=== PATIENT | male | born 1960 | race Two or more races ===

== ENCOUNTER 2019-05-17 21:02 | Emergency (ER) | payer MEDICAID ==
[~2019-05-17] VITALS: Ht 182.9 cm; Wt 75.7 kg
[2019-05-17 20:55] VITALS: BP 108/72
--- NOTE | 2019-05-17 20:55 | NUR ---
ED Nurse Note: pt brought in by [facility] for SI. pt currently does not have a plan of suicide, no weapons. VSS. ramires x4, ambulatory. Addendum: 05/17/19 at 2340 by [facility] ED Nurse Note: pt brought in by [facility] for SI. pt currently does not have a plan of suicide, no weapons. VSS. adin x4, ambulatory.
--- NOTE | 2019-05-17 21:39 | NUR ---
ESTELA is here.
--- NOTE | 2019-05-17 21:45 | NUR ---
PT refuse to gve urine , refuse straight cath also. ESTELA is talking to pt at this time.
--- NOTE | 2019-05-17 22:10 | NUR ---
blood and urine sample obtained
--- NOTE | 2019-05-17 22:22 | Emergency Room Report ---
History of Present Illness General Chief Complaint: Behavioral Complaint Source: Patient Present Illness HPI This is a 58-year-old male with psychiatric history. He had a recent compression fracture and is in a brace. He was seen at [place] 3 days ago. He called 9 1 with chief complaint of feeling depressed and suicidal. No particular plan. Denies any alcohol or drugs. Denies any nausea vomiting. Here he said he just want to sleep. Denies any other complaint. Not cooperative. Allergies: Coded Allergies: No Known Allergies (Unverified , 05/17/19) Patient History Past Medical History: see triage record, old chart reviewed Past Surgical History: other Family History: none Social History: other Immunizations: other Reviewed Nursing Documentation: PMH: Agreed; PSxH: Agreed Nursing Documentation-PMH Past Medical History: No History, Except For History Of Psychiatric Problem: Yes Review of Systems ENT: Denies: sore throat Cardiovascular: Denies: chest pain, palpitations Gastrointestinal/Abdominal: Denies: nausea, vomiting, diarrhea Musculoskeletal: Denies: back problems Skin: Denies: rash Psychiatric: Reports: prior hx, suicidal/homicidal ideations Neurological: Denies: CASTRO, seizures All Other Systems: negative except mentioned in HPI Physical Exam Vital Signs Date Time Temp Pulse Resp B/P (MAP) Pulse Ox O2 Delivery O2 Flow Rate FiO2 05/17/19 20:49 97.9 80 05/17/19 20:49 16 107/69 (82) 100 Room Air 05/17/19 21:02 98 Vitals normal Sp02 EP Interpretation: reviewed, normal General Appearance: alert/responsive, no apparent distress, non-toxic Head: normocephalic, atraumatic Eyes: PERRL, EOMI ENT: oropharynx normal Neck: supple/symm/no masses Respiratory: effort normal, no rhonchi, no wheezing Cardiovascular: no murmur, gallop, rub Gastrointestinal: non-tender, no mass, non-distended, no rebound/guarding, normal bowel sounds Musculoskeletal: gait & station normal Neurologic: oriented x3, sensory intact, motor strength/tone normal Skin: no rash, normal palpation Medical Decision Making Diagnostic Impression: Primary Impression: Behavioral disorder Additional Impression: Methamphetamine abuse ER Course Patient presents with vague suicidal ideation. He is positive for methamphetamine. He slept through the night. Now denies any suicidal thoughts homicidal thought. No criteria for 5150. Will discharge home in the morning. This patient is a chronic risk of self injury due to poor impulse control, limited coping skills, and judgment intermittently impaired by intoxication. I believe that the available clinical evidence to suggest that these characteristics derived primarily from personality disorder and are likely very stable over time. Hospitalization would likely attenuate risk of self-harm only during care home period, without lasting risk reduction. Serious self-harm , while possible, would likely be inadvertent, and because of impulsivity, and foreseeable. For these reasons, I do not believe hospitalization would provide meaningful reduction in risk of self-harm. Last Vital Signs Date Time Temp Pulse Resp B/P (MAP) Pulse Ox O2 Delivery O2 Flow Rate FiO2 05/17/19 21:02 79 16 Room Air 98 05/17/19 20:55 97.9 108/72 100 Status: improved Disposition: HOME, SELF-CARE Condition: Stable Patient Instructions: Self-Destructive Behavior Additional Instructions: Stop using drugs. Follow-up with rehab in 7 days. Return if worse. Ozzie Colorado MD May 17, 2019 22:22
[2019-05-17 22:55] VITALS: BP 110/70
--- NOTE | 2019-05-17 23:40 | NUR ---
pt currently in bed with eyes close. VSS
--- NOTE | 2019-05-17 23:43 | NUR ---
ED Nurse Note: Pt currently in bed with eyes close, resting. VSS
--- NOTE | 2019-05-18 | NUR ---
ED Nurse Note: pt in bed with eyes closed. VSS
[2019-05-18 01:00] VITALS: BP 115/76
--- NOTE | 2019-05-18 02:05 | NUR ---
pt in bed with eyesclosed. appears to be sleeping. vss
[2019-05-18 03:00] VITALS: BP 120/80
--- NOTE | 2019-05-18 04:09 | NUR ---
ED Nurse Note: pt in bed resting, eyes closed. VSS
[2019-05-18 06:05] VITALS: BP 132/76
--- NOTE | 2019-05-18 06:05 | NUR ---
ER DISCHARGE NOTE: Patient is cleared to be discharged per ERMD, pt is aox4, on room air, with stable vital signs. pt was given dc instructions, pt was able to verbalize understanding, but refuse to sign discharge paper. pt id band removed without complications. pt is able to ambulate with steady gait. pt took all belongings.
== END 2019-05-18 06:05 | disposition home or self-care (01) ==
LOC: EDBD 21:02 → EMR 21:12
DX: F15.10 Other stimulant abuse, uncomplicated (principal); F91.9 Conduct disorder, unspecified
CPT/HCPCS: 36415; 80307; 80329; 99283

== ENCOUNTER 2020-01-25 05:18 | Emergency (ER) | payer MEDICAID ==
[~2020-01-25] VITALS: Ht 177.8 cm; Wt 99.8 kg
[2020-01-25 05:20] VITALS: BP 140/86
--- NOTE | 2020-01-25 05:20 | NUR ---
ED Nurse Note: PT BROUGHT IN BY JEMIMA 858 C/O BEHAVIORAL ISSUE FROM [facility]. PER EMS PT IS HOMELESS AND PLACED ON HOLD. VSS, AMBULATORY, AAOX3, PATIENT IS RESISTIVE TO CARE. [employer] AT BEDSIDE.
--- NOTE | 2020-01-25 05:36 | Emergency Room Report ---
History of Present Illness General Chief Complaint: Behavioral Complaint Source: Patient, EMS (Ozzie Colorado MD) Present Illness HPI This is a 59-year-old male history of COPD and drug abuse. He presents with chief plaint of suicidal thoughts. He was trying to get into the highway cell cart and hit him. Police was called and he was brought here for psychiatric valuation. Was placed on a 5150. States that said that he was set up. What he took was may be synthetic heroin. He said people are out to get him. He is angry and agitated. He is cursing. He denies any homicidal thought. He does have suicidal thoughts. He is placed on a 5150 by police officers. (Ozzie Colorado MD) COVID-19 Screening Contact w/high risk pt: No Recent Travel to affected area: No Experienced COVID-19 symptoms?: No (Ozzie Colorado MD) Patient History Past Medical History: see triage record, old chart reviewed, COPD Past Surgical History: none, other Social History: Reports: smoking, drug use Immunizations: other Reviewed Nursing Documentation: PMH: Agreed; PSxH: Agreed (Ozzie Colorado MD) Nursing Documentation-PMH Hx Asthma: Yes Hx COPD: Yes - emphysema History Of Psychiatric Problem: Yes Hx Seizures: Yes (Ozzie Colorado MD) Review of Systems Eye: Denies: eye pain, blurred vision ENT: Denies: ear pain, nose congestion, throat swelling Respiratory: Denies: cough, shortness of breath Cardiovascular: Denies: chest pain, palpitations Gastrointestinal: Denies: abdominal pain, diarrhea, nausea, vomiting Musculoskeletal: Denies: back pain, joint pain Skin: Denies: rash Neurological: Denies: headache, numbness Endocrine: Denies: increased thirst, increased urine Hematologic/Lymphatic: Denies: easy bruising All Other Systems: negative except mentioned in HPI (Ozzie Colorado MD) Physical Exam Vital Signs Date Time Temp Pulse Resp B/P (MAP) Pulse Ox O2 Delivery O2 Flow Rate FiO2 01/25/20 05:17 98.8 84 16 140/86 (104) 98 Room Air Vitals unremarkable Sp02 EP Interpretation: reviewed, normal General Appearance: well appearing, no apparent distress, alert Head: normocephalic, atraumatic Eyes: bilateral eye PERRL, bilateral eye EOMI ENT: hearing grossly normal, normal pharynx Neck: full range of motion, supple, no meningismus Respiratory: chest non-tender, lungs clear, normal breath sounds Cardiovascular #1: regular rate, rhythm, no murmur Gastrointestinal: normal bowel sounds, non tender, no mass, no organomegaly, no bruit, non-distended Musculoskeletal: back normal, normal range of motion, gait/station normal Psychiatric: mood/affect normal (Ozzie Colorado MD) Medical Decision Making Homeless Attestation I, The treating physician Dr. Young, have assessed and agree that patient is medically stable for discharge to an outpatient disposition. (Isai Young MD) Diagnostic Impression: Primary Impression: Suicidal behavior Qualified Codes: T14.91XA - Suicide attempt, initial encounter Additional Impressions: Substance abuse Behavioral disorder ER Course Patient presents with suicidal thoughts and running into traffic. He is placed on a 5150. Will check labs for medical clearance. If normal, he will be medically clear for psychiatric evaluation. Patient is medically cleared. (Ozzie Colorado MD) ER Course Please see above note. Patient has not taken his medications. Daily medications ordered. Complaining of carpal tunnel pain. Tylenol ordered. Awaiting labs for medical clearance. Ate and resting calmly. Laughing with staff, not depressed or expressing SI. Patient evaluated by Dr. Rizo. Patient abusive with psychiatrist. Language and demeanor felt to be more manipulative y psychiatrist than statement of true intent of self harm. Psychiatric hold rescinded. No medical emergency at this time. This patient is a chronic risk of self injury due to poor impulse control, limited coping skills, and judgment intermittently impaired by intoxication.~ I believe that the available clinical evidence to suggest that these characteristics derived primarily from personality disorder and are likely very stable over time.~ Hospitalization would likely attenuate risk of self-harm only during jail period, without lasting risk reduction.~ Serious self-harm , while possible, would likely be inadvertent, and because of impulsivity, and foreseeable.~ For these reasons, I do not believe hospitalization would provide meaningful reduction in risk of self-harm. Laboratory Tests Test 01/25/20 05:25 01/25/20 05:57 White Blood Count 4.2 K/UL (4.8-10.8) L Red Blood Count 4.98 M/UL (4.70-6.10) Hemoglobin 14.4 G/DL (14.2-18.0) Hematocrit 42.8 % (42.0-52.0) Mean Corpuscular Volume 86 FL (80-99) Mean Corpuscular Hemoglobin 29.0 PG (27.0-31.0) Mean Corpuscular Hemoglobin Concent 33.8 G/DL (32.0-36.0) Red Cell Distribution Width 12.7 % (11.6-14.8) Platelet Count 292 K/UL (150-450) Mean Platelet Volume 4.8 FL (6.5-10.1) L Neutrophils (%) (Auto) 52.4 % (45.0-75.0) Lymphocytes (%) (Auto) 32.4 % (20.0-45.0) Monocytes (%) (Auto) 9.2 % (1.0-10.0) Eosinophils (%) (Auto) 5.4 % (0.0-3.0) H Basophils (%) (Auto) 0.6 % (0.0-2.0) Sodium Level 138 MMOL/L (136-145) Potassium Level 3.8 MMOL/L (3.5-5.1) Chloride Level 103 MMOL/L (98-107) Carbon Dioxide Level 25 MMOL/L (21-32) Anion Gap 10 mmol/L (5-15) Blood Urea Nitrogen 23 mg/dL (7-18) H Creatinine 1.2 MG/DL (0.55-1.30) Estimated Glomerular Filtration Rate > 60 mL/min (>60) Glucose Level 99 MG/DL (74-106) Calcium Level 9.0 MG/DL (8.5-10.1) Total Bilirubin 0.3 MG/DL (0.2-1.0) Aspartate Amino Transferase (AST) 23 U/L (15-37) Alanine Aminotransferase (ALT) 14 U/L (12-78) Alkaline Phosphatase 105 U/L (46-116) Total Protein 7.9 G/DL (6.4-8.2) Albumin 4.1 G/DL (3.4-5.0) Globulin 3.8 g/dL Albumin/Globulin Ratio 1.1 (1.0-2.7) Salicylates Level 1.4 ug/mL (2.8-20) L Acetaminophen Level < 2 MCG/ML (10-30) L Serum Alcohol < 3 mg/dL Urine Color Yellow Urine Appearance Clear Urine pH 5 (4.5-8.0) Urine Specific [place] 1.025 (1.005-1.035) Urine Protein 1+ (NEGATIVE) H Urine Glucose (UA) Negative (NEGATIVE) Urine Ketones Negative (NEGATIVE) Urine Blood Negative (NEGATIVE) Urine Nitrite Negative (NEGATIVE) Urine Bilirubin Negative (NEGATIVE) Urine Urobilinogen 1 MG/DL (0.0-1.0) H Urine Leukocyte Esterase Negative (NEGATIVE) Urine RBC 0 /HPF (0 - 0) Urine WBC 0-2 /HPF (0 - 0) Urine Squamous Epithelial Cells None /LPF (NONE/OCC) Urine Bacteria Occasional /HPF (NONE) Urine Opiates Screen Negative (NEGATIVE) Urine Barbiturates Screen Negative (NEGATIVE) Phencyclidine (PCP) Screen Negative (NEGATIVE) Urine Amphetamines Screen Positive (NEGATIVE) H Urine Benzodiazepines Screen Negative (NEGATIVE) Urine Cocaine Screen Negative (NEGATIVE) Urine Marijuana (THC) Screen Negative (NEGATIVE) (Isai Young MD) Last Vital Signs Date Time Temp Pulse Resp B/P (MAP) Pulse Ox O2 Delivery O2 Flow Rate FiO2 01/25/20 05:17 98.8 84 16 140/86 (104) 98 Room Air Status: improved (Ozzie Colorado MD) Last Vital Signs Date Time Temp Pulse Resp B/P (MAP) Pulse Ox O2 Delivery O2 Flow Rate FiO2 01/25/20 13:49 98.0 68 19 138/77 99 Room Air 98 Status: improved (Isai Young MD) Disposition: HOME, SELF-CARE Condition: Stable Ozzie Colorado MD Jan 25, 2020 05:36 Isai Young MD Jan 25, 2020 06:45
--- NOTE | 2020-01-25 05:41 | NUR ---
ED Nurse Note: BLOOD DRAWN AND SENT TO LAB
--- NOTE | 2020-01-25 05:50 | NUR ---
ED Nurse Note: patient urine collected and sent to lab. pt placed on gown.
--- NOTE | 2020-01-25 06:00 | NUR ---
ED Nurse Note: belongings inventory list done. patient belonging removed from body and all placed in locker #3 and floor. Sharps/weapon given to security.
[2020-01-25 06:13] LABS: BASOPHILS % (AUTO) 0.6 % (0.0-2.0); EOSINOPHILS % (AUTO) 5.4 % (0.0-3.0); HEMATOCRIT 42.8 % (42.0-52.0); HEMOGLOBIN 14.4 G/DL (14.2-18.0); LYMPHOCYTES % (AUTO) 32.4 % (20.0-45.0); MEAN CORPUSCULAR VOLUME 86 FL (80-99); MONOCYTES % (AUTO) 9.2 % (1.0-10.0); NEUTROPHILS % (AUTO) 52.4 % (45.0-75.0); PLATELET COUNT 292 K/UL (150-450); RED BLOOD COUNT 4.98 M/UL (4.70-6.10); RED CELL DISTRIBUTION WIDTH 12.7 % (11.6-14.8); WHITE BLOOD COUNT 4.2 K/UL (4.8-10.8)
[2020-01-25 06:21] LABS: ANION GAP 10 mmol/L (5-15); BLOOD UREA NITROGEN 23 mg/dL (7-18); CARBON DIOXIDE 25 MMOL/L (21-32); CHLORIDE 103 MMOL/L (98-107); CREATININE 1.2 MG/DL (0.55-1.30); POTASSIUM 3.8 MMOL/L (3.5-5.1); SODIUM 138 MMOL/L (136-145)
[2020-01-25 06:25] LABS: ALANINE AMINOTRANSFERASE 14 U/L (12-78); ALBUMIN 4.1 G/DL (3.4-5.0); ALBUMIN/GLOBULIN RATIO 1.1 (1.0-2.7); ALKALINE PHOSPHATASE 105 U/L (46-116); ASPARTATE AMINO TRANSFERASE 23 U/L (15-37); BILIRUBIN,TOTAL 0.3 MG/DL (0.2-1.0)
[2020-01-25] MEDS ORDERED: DiphenhydrAMINE 25mg Tab ORAL ONE (06:30)
[2020-01-25] MEDS ORDERED: ASPIRIN325 MG ORAL (06:37)
--- NOTE | 2020-01-25 06:47 | NUR ---
ED Nurse Note: sitter at bedside safety precautions in place
--- NOTE | 2020-01-25 06:51 | NUR ---
ED Nurse Note: Pt CO of pain d/t previous hx of carpal tunnel in hands bilaterally. ERMD notified. Pain medication administered, pt tolerated well. no ss of distress noted. no adverse reactions noted.
[2020-01-25] MEDS ORDERED: GABAPENTIN300 MG ORAL (06:55)
[2020-01-25] MEDS ORDERED: MEGA MULTI FOR1 EAC1 PO (06:55)
[2020-01-25] MEDS ORDERED: BUPROPION HCL100 M1 ORAL (06:55)
[2020-01-25] MEDS ORDERED: MIRTAZAPINE15 M3 ORAL (06:55)
[2020-01-25] MEDS ORDERED: MIRTAZAPINE45 MG ORAL (07:26)
[2020-01-25] MEDS ORDERED: BUPROPION XL300 M1 PO (07:26)
[2020-01-25] MEDS ORDERED: GABAPENTIN600 MG ORAL (07:26)
[2020-01-25] MEDS ORDERED: ZYPREXA10 MG ORAL (07:26)
--- NOTE | 2020-01-25 07:27 | NUR ---
ED Nurse Note: GAVE REPORT TO MELISSA DELEON
--- NOTE | 2020-01-25 07:35 | NUR ---
ED Nurse Note: report received from Checo Vargas RN. PT in stable condition, resting in bed comfortably. VSS no sss of distress noted
[2020-01-25 07:36] VITALS: BP 139/84
--- NOTE | 2020-01-25 07:46 | NUR ---
ED Nurse Note: Sitter at bedside, safety precautions in place
--- NOTE | 2020-01-25 07:49 | NUR ---
ED Nurse Note: pt continually talks and laughs to himself when alone. no ss of distress noted. pt resting comfortably in bed
[2020-01-25 08:35] LABS: APPEARANCE,URINE CLEAR; BILIRUBIN, URINE NEGATIVE (NEGATIVE); GLUCOSE, URINE (UA) NEGATIVE (NEGATIVE); KETONES,URINE NEGATIVE (NEGATIVE); LEUKOCYTE ESTERASE ,URINE NEGATIVE (NEGATIVE); NITRITE,URINE NEGATIVE (NEGATIVE); PH,URINE 5 (4.5-8.0); PROTEIN,URINE 1+ (NEGATIVE); UROBILINOGEN,URINE 1 MG/DL (0.0-1.0)
[2020-01-25 08:39] LABS: COLOR,URINE YELLOW
--- NOTE | 2020-01-25 08:52 | NUR ---
ED Nurse Note: all medications administered, pt tolerated well no ss of distress noted. no adverse reactions noted.
[2020-01-25] MEDS ORDERED: BuPROPion SR 150mg tab ORAL SCH (09:00)
[2020-01-25] MEDS ORDERED: ZyPREXA Zydis 10mg tab ORAL SCH (09:00)
[2020-01-25 09:21] VITALS: BP 142/85
--- NOTE | 2020-01-25 11:10 | NUR ---
ED Nurse Note: Report given to ADRIENNE Contreras
--- NOTE | 2020-01-25 13:03 | NUR ---
ED Nurse Note: pt awake and calm. Gabapentin 300mg was administrated. pt tolerated well.
--- NOTE | 2020-01-25 13:07 | NUR ---
ED Nurse Note: pt is awake and was able to answer for psychic eval. pt stated "yes" for the questions if he wants to hurt himself. pt denied having specific plans. no hallucinating present.
--- NOTE | 2020-01-25 13:17 | NUR ---
ED Nurse Note: Patient was moved from Ortho to Bed3. Pt awake, alert and oriented. not in any distress. Ambulatory with steady gait. Denies SI/ HI at this time.
--- NOTE | 2020-01-25 13:34 | NUR ---
ED Nurse Note: DR. ANGELES AT THE BEDSIDE. DR. ANGELES LIFTED THE HOLD
--- NOTE | 2020-01-25 13:40 | Initial Psychiatric Evaluation ---
Psychiatry Consultation Psychiatry Consultation Chief Complaint: Behavioral Complaint History of Present Illness: job#[id number] Medication History Scheduled Aspirin* (Aspirin*), 325 MG ORAL DAILY, (Reported) Bupropion Sr* (Bupropion Sr*), 100 MG ORAL EVERY 12 HOURS, (Reported) Gabapentin* (Gabapentin*), 300 MG ORAL THREE TIMES A DAY, (Reported) Gabapentin* (Gabapentin*), 600 MG ORAL THREE TIMES A DAY, (Reported) Mirtazapine* (Mirtazapine*), 15 MG ORAL BEDTIME, (Reported) Mirtazapine* (Remeron*), 45 MG ORAL BEDTIME, (Reported) Olanzapine* (Zyprexa*), 10 MG ORAL DAILY, (Reported) Miscellaneous Medications Bupropion HCl (Bupropion Xl), 300 MG PO, (Reported) Mv-Mn/Fa/Lycopene/Lut/Hb#178 (Deep Multi For Men Tablet), 1 EACH PO, (Reported) Objective Data Height (Feet): 5 Height (Inches): 10.00 Weight (Pounds): 220 Appearance: disheveled Assessment/Plan Diagnosis [place] I: meth dependence -dc 5150 -dc with referrals -the pt is not a dts/dto Malathi Rizo MD Jan 25, 2020 13:40
[2020-01-25 13:49] VITALS: BP 138/77
--- NOTE | 2020-01-25 13:49 | NUR ---
ED Nurse Note: Pt cleared by ERMD for discharge. DC instructions was given and explained to pt and verbalized understanding of teachings. All medical deviecs such as ID band removed. Pt is AAO x4, ambulatory and left with all personal belongings. Pt provided halfway resources but refused. Snacks provided.
--- NOTE | 2020-01-26 00:45 | Consultation ---
DATE OF CONSULTATION: 01/25/2020 CONSULTING PHYSICIAN: Malathi Rizo M.D. HISTORY OF PRESENT ILLNESS: This is a 59-year-old male with a history of methamphetamine abuse who was admitted to the hospital on a 5150 for danger to self. Patient stated that there is a Coronavirus out there and he feels suicidal. He did not have any plan or intention. Patient is worried about the virus. PAST PSYCHIATRIC HISTORY: He is not seeing a psychiatrist on a regular basis and stated that he is not taking any medication. PAST MEDICAL HISTORY: Nonsignificant. ALLERGIES: No known drug allergies. SUBSTANCE ABUSE HISTORY: Significant for methamphetamine. MENTAL STATUS EXAMINATION: Patient is alert, oriented times self, place, situation, and mood. Patient's mood was irritable and angry. Affect is constricted, congruent with mood. Thought process is concrete. Thought content, no suicidal or homicidal ideation. Cognition is intact. Insight and judgment fair. ASSESSMENT: [place] I Methamphetamine abuse. [place] II Deferred. [place] III As above. [place] IV Low. [place] V 50. PLAN: 1. We will discontinue 5150. 2. Patient was given referral. 3. No medication at this time. Malathi Rizo M.D. DR: TANESHA JOB#: [id number] CC:
--- NOTE | 2020-01-26 01:15 | Consultation ---
DATE OF CONSULTATION: 01/25/2020 CONSULTING PHYSICIAN: Malathi Rizo M.D. HISTORY OF PRESENT ILLNESS: This is a 59-year-old male with a history of methamphetamine abuse who was admitted to the hospital on a 5150 for danger to self. Patient stated that there is a Coronavirus out there and he feels suicidal. He did not have any plan or intention. Patient is worried about the virus. PAST PSYCHIATRIC HISTORY: He is not seeing a psychiatrist on a regular basis and stated that he is not taking any medication. PAST MEDICAL HISTORY: Nonsignificant. ALLERGIES: No known drug allergies. SUBSTANCE ABUSE HISTORY: Significant for methamphetamine. MENTAL STATUS EXAMINATION: Patient is alert, oriented times self, place, situation. Patient's mood was irritable and angry. Affect is constricted, congruent with mood. Thought process is concrete. Thought content, no suicidal or homicidal ideation. Cognition is intact. Insight and judgment fair. ASSESSMENT: [place] I Methamphetamine abuse. [place] II Deferred. [place] III As above. [place] IV Low. [place] V 50. PLAN: 1. We will discontinue 5150. 2. Patient was given referral. 3. No medication at this time. Malathi Rizo M.D. DR: TANESHA JOB#: [id number] CC:
== END 2020-01-25 13:49 | disposition home or self-care (01) ==
LOC: EDBD 05:18 → EMR 05:40
DX: T14.91XA Suicide attempt, initial encounter (principal); F19.10 Other psychoactive substance abuse, uncomplicated; F91.9 Conduct disorder, unspecified; G40.909 Epilepsy, unspecified, not intractable, without status epilepticus; J44.9 Chronic obstructive pulmonary disease, unspecified; F17.200 Nicotine dependence, unspecified, uncomplicated; X83.8XXA Intentional self-harm by other specified means, initial encounter; Y92.9 Unspecified place or not applicable
CPT/HCPCS: 36415; 80053; 80307; 81003; 85025; G0480; G0481; Z7502; 99285